=== PATIENT | male | born 1935 | race Caucasian/White ===

== ENCOUNTER 2017-03-22 16:02 | Emergency (ER) | payer OTHER ==
[~2017-03-22] VITALS: Ht 177.8 cm; Wt 68.9 kg
[2017-03-22] MEDS ORDERED: [UNRECOGNIZED DRUG - REMARK] (16:46)
[2017-03-22] MEDS ORDERED: [UNRECOGNIZED DRUG - REMARK] (16:46)
[2017-03-22] MEDS ORDERED: ABIR250T PO (16:46)
[2017-03-22] MEDS: KETOROLAC TROMETHAMINE 30 MG INJ IM ONE (17:43)
[2017-03-22] MEDS ORDERED: KETOROLAC TROMETHAMINE 30 MG INJ ONE (17:50)
--- NOTE | 2017-03-22 18:11 | NUR ---
Patient discharged to home in stable conditon. Written and verbal after care instructions given. Patient verbalizes understanding of instructions.CALLED [facility] PER PT REQUEST. PT CALLED AND TOLD HER THAT SHE IS COMING HOME.
[2017-03-22 18:12] VITALS: BP 142/71
== END 2017-03-22 18:16 | disposition home or self-care (01) ==
LOC: ER 16:04
DX: M25.511 Pain in right shoulder (principal); I25.10 Atherosclerotic heart disease of native coronary artery without angina pectoris; C61 Malignant neoplasm of prostate; Z88.2 Allergy status to sulfonamides
CPT/HCPCS: 73060; A4663; J1885

== ENCOUNTER 2017-09-25 20:18 | Emergency (ER) | payer MEDICAID, OTHER ==
[~2017-09-25] VITALS: Ht 167.6 cm; Wt 60.6 kg
[~2017-09-25 20:18] MED LIST: ABIR250T PO; [UNRECOGNIZED DRUG - REMARK]; [UNRECOGNIZED DRUG - REMARK]
--- NOTE | 2017-09-25 20:40 | NUR ---
PT ARRIVED TO ER BY EMS FROM HOME C/O MECHANICAL FALL. OPEN WOUND NOTED ON RFA, R ELBOW & R BIG FINGER. DR LUJAN CAME IN & EVALUATED PT.
[2017-09-25 20:48] LABS: BASOPHILS % (AUTO) 0.4 % (0.0-2.0); EOSINOPHILS # (AUTO) 0.1 K/uL (0.0-0.7); HEMATOCRIT 32.3 % (40-50); HEMOGLOBIN 10.1 G/DL (14.0-18.0); LYMPHOCYTES # (AUTO) 0.8 K/UL (0.8-4.8); LYMPHOCYTES % (AUTO) 9.7 % (20.5-51.5); MEAN CORPUSCULAR HEMOGLOBIN 23.8 UUG (27.0-31.0); MEAN CORPUSCULAR HGB CONC 31 g/dL (32.0-37.0); MEAN CORPUSCULAR VOLUME 75.8 FL (82.0-92.0); MONOCYTES # (AUTO) 0.5 K/UL (0.1-1.30); MONOCYTES % (AUTO) 6.4 % (0.0-11.0); NEUTROPHILS # (AUTO) 6.7 K/UL (1.8-8.9); NEUTROPHILS % (AUTO) 82.5 % (38.5-71.5); PLATELET COUNT (AUTO) 362 K/UL (150-450); RED BLOOD CELL COUNT(AUTO) 4.27 MIL/UL (4.7-6.1); WHITE BLOOD COUNT (AUTO) 8.1 K/UL (4.0-11.2)
[2017-09-25 20:56] LABS: CARBON DIOXIDE 30 mmol/L (21-32); CHLORIDE 105 mmol/L (98-107); CREATININE 0.7 mg/dL (0.6-1.3); GLUCOSE 134 mg/dL (74-106); POTASSIUM 4.4 mmol/L (3.5-5.1); UREA NITROGEN, BLOOD 22 mg/dL (7-18)
[2017-09-25 21:02] LABS: ALANINE AMINOTRANSFERASE 10 U/L (16-63); ALKALINE PHOSPHATASE 108 U/L (50-136); ASPARTATE AMINOTRANSFERASE 14 U/L (15-37); BILIRUBIN,DIRECT 0.1 mg/dL (0.0-0.2); BILIRUBIN,TOTAL 0.3 mg/dL (0.2-1.0); TOTAL PROTEIN, SERUM 6.3 g/dL (6.4-8.2)
--- NOTE | 2017-09-25 21:10 | NUR ---
PT TO XRAY FOR CT SCAN OF HEAD VIA [facility].
[2017-09-25] MEDS ORDERED: PANT20TA3 PO (21:15)
[2017-09-25] MEDS ORDERED: ASPI-1169 PO (21:15)
[2017-09-25] MEDS ORDERED: FURO-152 PO (21:15)
[2017-09-25] MEDS ORDERED: PRED2.5T PO (21:15)
[2017-09-25] MEDS ORDERED: CARB25TA3 PO (21:15)
[2017-09-25 21:46] LABS: *BILIRUBIN,URIN NEGATIVE (NEGATIVE); *BLOOD, URINE NEGATIVE (NEGATIVE); *COLOR,URINE YELLOW (YELLOW); *KETONES,URINE NEGATIVE (NEGATIVE); *PROTEIN,URINE NEGATIVE (NEGATIVE); *UROBILINOGEN,URINE 0.2 E.U./dl (NORMAL); LEUKOCYTE ESTERASE ,URINE NEGATIVE (NEGATIVE); NITRITE, URINE NEGATIVE (NEGATIVE); UGLUCOSE NEGATIVE (NEGATIVE)
[2017-09-25 21:55] LABS: *CLARITY,URINE SLIGHTLY HAZY (CLEAR)
[2017-09-25 21:58] LABS: MUCUS,URINE MANY /LPF (0-FEW); URINE AMORPHOUS PHOSPHATES MODERATE /HPF; WBC,URINE NONE SEEN /HPF (0-3)
--- NOTE | 2017-09-25 22:32 | NUR ---
JOELLE speaking with Shravan WITT, Dr. Reese.
--- NOTE | 2017-09-25 23:15 | NUR ---
report given to benjamin schwartz rn.
--- NOTE | 2017-09-25 23:47 | NUR ---
transfered to [facility] via [facility], [facility], #104 dip.
--- NOTE | 2017-09-26 00:12 | NUR ---
Patient Tranfers to outside Facility, [facility] ER. Physician: Brent Velazquez , Dr Cardenas Location:[facility] ER Report given to : Cher Mesa RN in [facility] ER. Patient transfered in stable condition via BLS , [facility] unit [facility]. All belongings taken with patient at time of transport. 2 RN skin check complete prior to transfer. No complaint of pain at time of transfer. All patient needs attended and met. VSS. No acute distress noted. No further questions or concerns. Patient chart provided to EMT Dil for transport to [facility]. Patient is aware of patient transfer.
--- NOTE | 2017-09-26 00:26 | NUR ---
Peripheral IV remains intact at time of transfer per accepting facility request. Shravan DEAN RN aware of IV access. EMT for [facility] unit [facility] notified and accepted patient.
== END 2017-09-26 00:28 | disposition short-term general hospital (02) ==
LOC: ER 20:19
DX: S41.111A Laceration without foreign body of right upper arm, initial encounter (principal); S09.90XA Unspecified injury of head, initial encounter; I25.10 Atherosclerotic heart disease of native coronary artery without angina pectoris; G20 Parkinson's disease; F17.210 Nicotine dependence, cigarettes, uncomplicated; I73.9 Peripheral vascular disease, unspecified; M85.80 Other specified disorders of bone density and structure, unspecified site; M48.02 Spinal stenosis, cervical region; Z79.82 Long term (current) use of aspirin; Z88.2 Allergy status to sulfonamides; W10.9XXA Fall (on) (from) unspecified stairs and steps, initial encounter; Y92.89 Other specified places as the place of occurrence of the external cause; Y93.89 Activity, other specified; Y99.8 Other external cause status
CPT/HCPCS: 36415; 70450; 71010; 72125; 80048; 80076; 81001; 84484; 85025; 85730; 93005; 99285; A4217; A4663; 70030-TC